=== PATIENT | female | born 1995 | race Native Hawaiian/Other Pacific Islander ===

== ENCOUNTER 2017-05-14 17:00 | Outpatient (CLI) | payer OTHER ==
--- NOTE | 2017-05-15 09:45 | Ultrasound Report ---
PELVIC ULTRASOUND: 05/14/2017 CLINICAL INDICATION: Menorrhagia. TECHNIQUE: Transabdominal pelvic ultrasound performed for global evaluation. Transvaginal pelvic ultrasound performed for detailed evaluation. Real-time scanning performed and static images obtained. FINDINGS: The uterus is anteverted, measuring 8.0 x 4.5 x 4.2 cm. The endometrium measures 27 mm. No focal myometrial lesion is seen. The right ovary measures 3.0 x 2.2 x 1.4 cm, and appears unremarkable. The left ovary measures 3.6 x 2.8 x 2.3 cm, and appears unremarkable. A small amount of free fluid is noted in the cul-de-sac. IMPRESSION: NORMAL PELVIC ULTRASOUND. TD: 05/15/2017 09:44
== END 2017-05-14 17:01 | disposition home or self-care (01) ==
LOC: DI 17:00
PROVIDERS: ATTEND Internal Medicine
DX: N92.0 Excessive and frequent menstruation with regular cycle (principal)
CPT/HCPCS: 76830; 76856

== ENCOUNTER 2017-06-23 22:43 | Emergency (ER) | payer OTHER ==
[2017-06-23 22:53] VITALS: BP 121/79
[2017-06-23] MEDS ORDERED: ONDANSETRON ODT 4 MG TABLET TL STA (22:56)
[2017-06-23 23:11] LABS: BILIRUBIN,URINE NEGATIVE (NEGATIVE); GLUCOSE, URINE (UA) NEGATIVE (NEGATIVE); KETONES,URINE (UA) NEGATIVE (NEGATIVE); LEUKOCYTE ESTERASE, URINE NEGATIVE (NEGATIVE); NITRITE,URINE NEGATIVE (NEGATIVE); OCCULT BLOOD,URINE NEGATIVE (NEGATIVE); PROTEIN,URINE NEGATIVE (NEGATIVE); UROBILINOGEN,URINE 0.2 (NORMAL) E.U./dL (NORMAL)
[2017-06-23 23:15] LABS: CLARITY,URINE CLEAR (CLEAR); HCG UR QUAL NEGATIVE
[2017-06-23] MEDS ORDERED: ACETAMINOPHEN 325 MG TABLET PO STA (23:28)
[2017-06-23] MEDS ORDERED: LIDOCAINE PATCH 5% TOP STA (23:28)
--- NOTE | 2017-06-23 23:31 | ED Physician Documentation ---
PD HPI BACK PAIN - Stated complaint Stated Complaint: BACK/ABD PX - Chief complaint Chief Complaint: Abd Pain - History obtained from History obtained from: Patient, Family - History of Present Illness Timing - onset: Yesterday Timing - details: Gradual onset, Still present Location: Mid, Left Quality: Pain, Aching Associated symptoms: No: Unable to urinate, Hematuria Similar symptoms before: Work up / diagnostics Recently seen: Clinic - Additional information Additional information: patient is a 21 year old female presenting to the emergency department for back pain. Patient states that it is on the left side. patient reports that she has also had increased urinary frequency and states it feels like when she a kidney infection. patient also reports that she recently had an adjustment from a physical therapist and has been having some aches and pains. Review of Systems Constitutional: denies: Fever, Chills Nose: denies: Rhinorrhea / runny nose Cardiac: denies: Chest pain / pressure GI: reports: Nausea. denies: Vomiting, Constipation, Diarrhea : reports: Frequency. denies: Dysuria, Hesitancy, Hematuria Musculoskeletal: reports: Back pain Neurologic: denies: Generalized weakness, Focal weakness Immunocompromised: denies: Immunocompromised PD PAST MEDICAL HISTORY - Past Medical History Past Medical History: No - Past Surgical History Past Surgical History: Yes HEENT: Tonsil/Adenoidectomy - Present Medications Home Medications: Ambulatory Orders Medication Instructions Recorded Confirmed Lidocaine Patch 5% [Lidoderm Patch] 1 each TOP DAILY #10 patch 06/23/17 - Allergies Allergies/Adverse Reactions: Allergies Allergy/AdvReac Type Severity Reaction Status Date / Time No Known Drug Allergies Allergy Verified 06/23/17 23:12 - Social History Does the pt smoke?: No Smoking Status: Never smoker Does the pt drink ETOH?: Yes Does the pt have substance abuse?: No - Immunizations Immunizations are current?: Yes PD ED PE NORMAL - Vitals Vital signs reviewed: Yes - General General: Alert and oriented X 3, No acute distress - HEENT HEENT: Atraumatic, Moist mucous membranes - Cardiac Cardiac: RRR - Respiratory Respiratory: No respiratory distress - Abdomen Abdomen: Soft, Non distended - Derm Derm: Normal color, Warm and dry, No rash - Extremities Extremities: No deformity - Neuro Neuro: Alert and oriented X 3, No motor deficit Eye Opening: Spontaneous PD ED PE EXPANDED - Back Back: Soft tissue tenderness (left thoracic paraspinal muscles) Results - Vitals Vitals: Vital Signs - 24 hr 06/23/17 22:51 Temperature 36.3 C L Heart Rate 77 Respiratory 16 Rate Blood Pressure 121/79 O2 Saturation 99 Oxygen O2 Source Room air - Labs Labs: Laboratory Tests 06/23/17 23:01 Urine Color YELLOW Urine Clarity CLEAR Urine pH 6.0 Ur Specific Kiel 1.020 Urine Protein NEGATIVE Urine Glucose (UA) NEGATIVE Urine Ketones NEGATIVE Urine Occult Blood NEGATIVE Urine Nitrite NEGATIVE Urine Bilirubin NEGATIVE Urine Urobilinogen 0.2 (NORMAL) Ur Leukocyte Esterase NEGATIVE Ur Microscopic Review NOT INDICATED Urine Culture Comments NOT INDICATED Urine HCG, Qual NEGATIVE PD MEDICAL DECISION MAKING - ED course Complexity details: reviewed old records, reviewed results, re-evaluated patient , considered differential, d/w patient, d/w family ED course: Patient was seen and examined at bedside. Patient was well appearing and in no distress. patient's urine was collected and showed no sign of infection. Patient was treated with tylenol and lidoderm patch. Patient required no further inpatient work up and was stable for discharge with outpatient follow up. Departure - Departure Disposition: 01 Home, Self Care Clinical Impression: Back pain Condition: Good Instructions: ED Sprain Thoracic Spine Follow-Up: Sophia Poe MD [Primary Care Provider] - As Needed Prescriptions: Lidocaine Patch 5% [Lidoderm Patch] 1 each TOP DAILY #10 patch Comments: Your diagnostics today were within normal limits. There was no sign of infection or kidney stone. Since you are breast feeding you can use tylenol, ice, heat and lidoderm as needed for pain. You should follow up with your doctor if your symptoms persist. You may return to the emergency department at any time for new, worsening or uncontrollable symptoms. Discharge Date/Time: 06/24/17 00:02
== END 2017-06-24 00:02 | disposition home or self-care (01) ==
LOC: ED 22:43
DX: M54.9 Dorsalgia, unspecified (principal)
CPT/HCPCS: 81003; 81025; 99283; A9270; Q0162; 81001; 87086

== ENCOUNTER 2017-09-05 12:26 | Emergency (ER) | payer OTHER ==
[2017-09-05 12:41] VITALS: BP 116/85
[2017-09-05] MEDS ORDERED: oxyCOD/ACETAMIN 5 MG/325 MG TABLET PO STA (14:39)
[2017-09-05] MEDS ORDERED: oxyCODONE/ACET 5/325 Prepack 4 PO STA (14:43)
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
== END 2017-09-05 14:58 | disposition home or self-care (01) ==
LOC: ED 12:26
DX: T23.251A Burn of second degree of right palm, initial encounter (principal); T31.0 Burns involving less than 10% of body surface; X15.0XXA Contact with hot stove (kitchen), initial encounter; Y92.009 Unspecified place in unspecified non-institutional (private) residence as the place of occurrence of the external cause
CPT/HCPCS: 99281; 99283; A9270